=== PATIENT | female | born 1980 | race Two or more races ===

== ENCOUNTER 2023-07-30 19:36 | Emergency (ER) | payer OTHER ==
[~2023-07-30] VITALS: Ht 167.6 cm; Wt 106.6 kg
[~2023-07-30 19:36] MED LIST: AMPICILLIN TRI500 MG PO; BACTROBAN22 GM TP; CEPHALEXIN500 M1 PO
== END 2023-07-31 00:28 | disposition home or self-care (01) ==
LOC: ER 19:37
DX: S09.8XXA Other specified injuries of head, initial encounter (principal); V43.52XA Car driver injured in collision with other type car in traffic accident, initial encounter; W22.11XA Striking against or struck by driver side automobile airbag, initial encounter; Y93.89 Activity, other specified; Y92.413 State road as the place of occurrence of the external cause; M54.2 Cervicalgia
CPT/HCPCS: 70450; 71046; 72125; 96372; 99284; J1885

== ENCOUNTER 2024-07-14 07:40 | Outpatient (CLI) | payer OTHER | END 2024-07-14 07:44 | disposition home or self-care (01) | LOC: SONOGRAMA 07:40 | PROVIDERS: ATTEND Pathology Anatomic Pathology & Clinical Pathology | DX: N63.20 Unspecified lump in the left breast, unspecified quadrant (principal) ==